=== PATIENT | female | born 1990 | race Caucasian/White ===

== ENCOUNTER 2020-02-26 10:08 | Observation (INO) ==
--- NOTE | 2020-02-26 10:38 | Emergency Department Note ---
History of Present Illness General Chief complaint: Facial Injury/Pain Stated complaint: FACIAL SWELLING Time Seen by Provider: 02/26/20 10:19 Source: patient Mode of arrival: ambulatory Limitations: no limitations History of Present Illness Provider complaint: Right facial pain Onset (ago): day(s) Location: face and right Radiation: non-radiation Severity: moderate Pain Consistency: + constant Maximum Pain Intensity: 6 Quality: + other (Pressure) Relieved By: + none Associated symptoms: + fever/chills (Temperature of 100.1 yesterday); no chest pain, no cough, no headaches, no nausea/vomiting and no shortness of breath This is a 29-year-old female who developed a sinus infection about a week ago on the right side. She was placed on Augmentin and a nasal steroid by her PCP 2 days ago. She developed right facial swelling at that time. She stated that it started around the maxillary area and is spreading to the upper portion of her head and inferiorly. She denies any dental pain or recent dental work. She has had no fevers but went to urgent care yesterday and they noted a temperature of 100.1. She was given Benadryl but this did not change her symptoms in any way. She has right facial pain which she describes as a pressure. No alleviating factors. She denies any headache, chest pain, shortness of breath, vomiting, abdominal pain, urinary symptoms or known exposure to COVID-19. She does go to work and has had temperature checks every day. She rates her pain a 6 out of 10 in severity. She denies any swelling to her tongue or throat. Home Medications Home Medications Medication Instructions Recorded Confirmed Type drospirenone 3 mg-ethinyl 1 tab PO DAILY #28 tab 12/11/19 02/26/20 Rx estradiol 0.03 mg tablet acetaminophen [Tylenol Extra 1,000 mg PO Q6H PRN 02/26/20 02/26/20 History Strength] Allergies Allergy/AdvReac Type Severity Reaction Status Date / Time No Known Allergies Allergy Verified 02/26/20 11:24 Past Med/Surg History Medical History Anemia Arthritis Migraine with aura Varicella Surgical History Encounter for ureteral catheter placement Family History Denies family history of Ovarian cancer Prostate cancer Breast cancer Colorectal cancer Social History Preferred Language: [place] Communication Ability: Effective Fish Butcher Required: No Beliefs That Will Affect Care: None Current Living Situation: Alone Other Information That Helps Us Care for You: No Feels Safe at Home: Yes Safety Concerns: Feels Safe At This Time Smoking Status: Never smoker Hx Alcohol Use: Yes Hx Substance Use: No Review of Systems See HPI for pertinent positives & negatives. and A total of 10 systems reviewed and were otherwise negative Physical Exam Vital Signs Vital Signs - 24 hr 02/26/20 10:16 02/26/20 11:50 02/26/20 14:00 Temperature 37.1 C 37.2 C Temperature Source Oral Oral Pulse Rate 129 H Pulse Rate [Left Finger] 106 H 118 H Pulse Rhythm Regular Pulse Strength Normal Respiratory Rate 20 22 20 Respiratory Effort / Characteristics Non-Labored Spontaneous Respiratory Depth Normal Respiratory Pattern Regular Blood Pressure 192/149 H Blood Pressure [Left Arm] 188/134 H 217/166 H Blood Pressure Mean 163 Blood Pressure Mean [Left Arm] 152 183 Blood Pressure Position Sitting Pulse Oximetry 97 98 98 Oxygen Delivery Method Room Air Sepsis Recent Fever Within 48 Hours No Sepsis Action Taken by Nursing No Action Required Constitutional: Vital signs reviewed. Eyes: Pupils are equal round reactive to light. Conjunctiva are noninjected. ENT: Pharynx is clear without erythema or exudate. Mucous membranes are moist. No swelling to the tongue or uvula. No elevation of the tongue. No submental firmness or swelling. She does have tenderness and swelling to the right side of her face. The tenderness is localized to the maxillary region. Neck supple without meningeal signs. Respiratory: Clear to auscultation bilaterally. Breath sounds are equal bilaterally. No stridor or wheezing. Cardiovascular: Tachycardic. Regular rhythm. GI: Soft, nondistended and nontender. Bowel sounds are present. Musculoskeletal: No peripheral edema. No lower extremity tenderness. Integumentary: No cyanosis. or jaundice. Neurological: The patient is awake and alert. No focal deficits. Psychiatric: Anxious. Course Administered Medications Acetaminophen (Tylenol) 650 mg PO Q4HWA NICHOLAS Stop: 03/27/20 15:59 Last Admin: 02/26/20 15:48 Dose: 650 mg Documented by: [id number] Ioversol (Optiray 320 100ml) 95 ml IV ONCE PRN PRN Reason: Interaction Checking Stop: 03/01/20 12:12 Last Admin: 02/26/20 12:13 Dose: 95 ml Documented by: [id number] Ketorolac Tromethamine (Toradol) 30 mg IV Q6H PRN PRN Reason: Pain Stop: 03/02/20 14:13 Last Admin: 02/26/20 14:28 Dose: 30 mg Documented by: [id number] Lorazepam (Ativan) 0.5 mg PO Q6H PRN PRN Reason: Anxiety Stop: 03/27/20 14:13 Last Admin: 02/26/20 14:28 Dose: 0.5 mg Documented by: [id number] Miscellaneous (Order Awaiting Action) 1 ea N/A QS [facility] Stop: 03/27/20 15:59 Last Admin: 02/26/20 15:39 Dose: Not Given Documented by: [id number] Discontinued Medications Ampicillin Sodium/Sulbactam Sodium 3,000 mg/ Sodium Chloride 108 mls @ 200 mls/hr IV NOW STA; Protocol Stop: 02/26/20 13:19 Last Infusion: 02/26/20 13:57 Dose: 0 mls/hr Documented by: [id number] Admin: 02/26/20 13:07 Dose: 200 mls/hr Documented by: [id number] Sodium Chloride (Nss 1000ml) 1,000 mls @ 999 mls/hr IV .Q1H1M NICHOLAS Stop: 02/26/20 15:01 Last Infusion: 02/26/20 15:21 Dose: 0 mls/hr Documented by: [id number] Admin: 02/26/20 14:05 Dose: 999 mls/hr Documented by: [id number] Morphine Sulfate (Morphine Sulfate) 4 mg IV NOW STA Stop: 02/26/20 13:07 Last Admin: 02/26/20 14:04 Dose: 4 mg Documented by: [id number] Ondansetron HCl (Zofran) 4 mg IV NOW STA Stop: 02/26/20 13:07 Last Admin: 02/26/20 14:04 Dose: 4 mg Documented by: [id number] Medical Decision Making Differential Diagnosis Facial abscess, facial cellulitis, sialoadenitis, outpatient treatment failure, sinusitis, MRSA Medical Records Attestation: I reviewed the patient's medical records. I did perform a limited focused review of portions of the patient's old chart on the electronic medical record. The patient has had no recent pertinent visits to this hospital. Home Medications Current Medication List: was personally reviewed by me Laboratory Data Attestation: I reviewed the patient's lab results. Result diagrams: 02/26/20 10:54 02/26/20 10:54 Lab Results 02/26/20 02/26/20 02/26/20 Range/Units 10:54 10:54 10:59 WBC 6.79 (4.8-10.8) K/uL RBC 4.80 (4.2-5.4) M/uL Hgb 13.8 (12.0-16.0) g/dL Hct 40.2 (37-47) % MCV 83.8 (80-100) fL MCH 28.8 (25-34) pg MCHC 34.3 (32-36) g/dL RDW Std Deviation 39.3 (36.4-46.3) fL RDW Coeff of Evelyn 13.0 (11.5-14.5) % Plt Count 283 (130-400) K/uL MPV 10.0 (7.4-10.4) fL Immature Gran % (Auto) 0.1 % Neut % (Auto) 69.8 % Lymph % (Auto) 15.5 % [place] % (Auto) 13.3 % Eos % (Auto) 1.2 % Baso % (Auto) 0.1 % Immature Gran # (Auto) 0.01 (0.00-0.02) K/uL Neut # (Auto) 4.74 (1.4-6.5) K/uL Lymph # (Auto) 1.05 L (1.2-3.4) K/uL [place] # (Auto) 0.90 H (0.11-0.59) K/uL Eos # (Auto) 0.08 (0-0.5) K/uL Baso # (Auto) 0.01 (0-0.2) K/uL Sodium 137 (136-145) mmol/L Potassium 3.6 (3.5-5.1) mmol/L Chloride 106 (98-107) mmol/L Carbon Dioxide 23 (21-32) mmol/L Anion Gap 8.0 (3-11) BUN 9 (7-18) mg/dl Creatinine 0.74 (0.6-1.2) mg/dl Est Cr Clr Drug Dosing 140.7 ml/min Est GFR ( Amer) 127.8 Est GFR (Non-Af Amer) 110.3 BUN/Creatinine Ratio 11.7 (10-20) Glucose 114 H (70-99) mg/dl Calcium 9.3 (8.5-10.1) mg/dl Nasal Screen MRSA (PCR) Negative (Negative) Imaging Data Radiologist's Impression: CT OF THE NECK WITH IV CONTRAST CLINICAL HISTORY: Facial swelling. Evaluate for abscess. COMPARISON STUDY: No previous studies for comparison. TECHNIQUE: Following IV administration of 95 mL of Optiray-320, helical axial images of the neck were obtained. Sagittal and coronal reconstructions were viewed. Automated exposure control was utilized for the study. A dose lowering technique was utilized adhering to the principles of ALARA. CT DOSE: 549.54 mGy.cm FINDINGS: Visualized portion of the intracranial contents are unremarkable. Orbits are unremarkable. Mastoid air cells are clear. Right maxillary sinus is nearly completely opacified. The left maxillary sinus is clear. There is mild right ethmoid sinus mucosal thickening. Lung apices are clear. The parotid and submandibular glands are normal. Note is made of a large periapical lucency associated with the right second maxillary bicuspid and the right first maxillary molar. This measures 1.5 cm. Small amount of radiodense material along the super aspect of this lucency may reflect surgical material. There is mild inflammation anterior to the right maxilla with a possible tiny 4 mm abscess. No additional abscesses are present. IMPRESSION: Large periapical lucency associated with the right first maxillary molar and adjacent second maxillary bicuspid, extending into the right maxillary sinus. This may reflect a periapical abscess or odontogenic cyst. Radiodense material along the superior aspect of this lucency may reflect surgical material. Associated near complete opacification of the right maxillary sinus and mild associated cellulitis with a probable tiny 4 mm adjacent abscess. ACT 112: Negative or not required by law. Electronically signed by: Stanley Troy M.D. 02/26/2020 12:34 PM Blood Pressure Blood Pressure Findings: Elevated blood pressure Blood Pressure Disposition: Referred to patients primary care provider SHANNON Narrative I did evaluate the patient as noted above. She declined any pain medication at this time as she drove herself here. IV access was established. I did order an MRSA swab. This was negative. I did order blood cultures. I did order and review the patient's blood work as noted in the electronic medical record. Her white blood cell count is not elevated. Electrolytes are unremarkable. I did order a CT of the soft tissue neck. I did review the images myself as well as the radiology report as described above. She apparently has a abscess in the periapical space as well as a small one in the right maxillary sinus which is completely opacified. She also has facial cellulitis. I did discuss the case with Dr. Foley of oral surgery. He recommended hospitalization for IV antibiotics and he will consult on the patient for operative repair. I did treat the patient with Unasyn IV. I did also treat the patient with IV morphine and Zofran since she would be hospitalized. I did discuss the test results with her and she was agreeable with the plan. Impression & Plan Cellulitis and abscess of face, Acute maxillary sinusitis, Failure of outpatient treatment Discharge Plan Visit Data Chief Complaint: Facial Injury/Pain Stated Complaint: FACIAL SWELLING ED Provider: Anuj Bowens Discharge Problem: Cellulitis and abscess of face, Acute maxillary sinusitis, Failure of outpatient treatment Patient Disposition: Being Evaluated by Hospitalist Discharge Instructions Interventions: ED Discharge Assessment Last Done: 02/26/20 15:10
[2020-02-26 11:16] LABS: Basophils # (auto) 0.01 K/uL (0-0.2); Basophils % (auto) 0.1 %; Eosinophils # (auto) 0.08 K/uL (0-0.5); Eosinophils % (auto) 1.2 %; Hematocrit (blood only) 40.2 % (37-47); Hemoglobin 13.8 g/dL (12.0-16.0); Immature Granulocytes # (auto) 0.01 K/uL (0.00-0.02); Immature Granulocytes % (auto) 0.1 %; Lymphocytes # (auto) 1.05 K/uL (1.2-3.4); Lymphocytes % (auto) 15.5 %; Mean Corpuscular Hemoglobin 28.8 pg (25-34); Mean Corpuscular Hgb Conc 34.3 g/dL (32-36); Mean Corpuscular Volume 83.8 fL (80-100); Monocytes % (auto) 13.3 %; Neutrophils # (auto) 4.74 K/uL (1.4-6.5); Neutrophils % (auto) 69.8 %; Platelet Count 283 K/uL (130-400); RDW Standard Deviation 39.3 fL (36.4-46.3); White Blood Count 6.79 K/uL (4.8-10.8)
[2020-02-26 11:32] LABS: BUN Creatinine Ratio 11.7 (10-20); Calcium 9.3 mg/dl (8.5-10.1); Creatinine Clr Calc Pharmacy 140.7 ml/min; Est GFR (African American) 127.8; Est GFR (Non-African American) 110.3; Potassium 3.6 mmol/L (3.5-5.1)
[2020-02-26] MEDS ORDERED: IOVERSOL 100ml IV PRN (12:13)
--- NOTE | 2020-02-26 12:36 | CT Scan Report ---
CT OF THE NECK WITH IV CONTRAST CLINICAL HISTORY: Facial swelling. Evaluate for abscess. COMPARISON STUDY: No previous studies for comparison. TECHNIQUE: Following IV administration of 95 mL of Optiray-320, helical axial images of the neck wer e obtained. Sagittal and coronal reconstructions were viewed. Automated exposure control was utiliz ed for the study. A dose lowering technique was utilized adhering to the principles of ALARA. CT DOSE: 549.54 mGy.cm FINDINGS: Visualized portion of the intracranial contents are unremarkable. Orbits are unremarkable. Mastoid air cells are clear. Right maxillary sinus is nearly completely opacified. The left maxillar y sinus is clear. There is mild right ethmoid sinus mucosal thickening. Lung apices are clear. The pa rotid and submandibular glands are normal. Note is made of a large periapical lucency associated with the right second maxillary bicuspid and the right first maxillary molar. This measures 1.5 cm. Small amount of radiodense material along the super aspect of this lucency may reflect surgical material. There is mild inflammation anterior to the right maxilla with a possible tiny 4 mm abscess. No additi onal abscesses are present. IMPRESSION: Large periapical lucency associated with the right first maxillary molar and adjacent sec ond maxillary bicuspid, extending into the right maxillary sinus. This may reflect a periapical absce ss or odontogenic cyst. Radiodense material along the superior aspect of this lucency may reflect matt gical material. Associated near complete opacification of the right maxillary sinus and mild associat ed cellulitis with a probable tiny 4 mm adjacent abscess. ACT 112: Negative or not required by law. Electronically signed by: Stanley Troy M.D. 02/26/2020 12:34 PM
[2020-02-26] MEDS ORDERED: AMPICILLIN/SULBACTAM SOD 3,000 MG in 0.9 % SODIUM CHLORIDE 100 ML IV STA (12:47)
[2020-02-26] MEDS ORDERED: ONDANSETRON INJ 2 MG/ML 2 ML VIAL IV STA (13:06)
[2020-02-26] MEDS ORDERED: MoRPHine SULFATE 4 MG/ML 1 ML CARP\\VIAL IV STA (13:06)
--- NOTE | 2020-02-26 13:59 | History & Physical Report ---
Date of Service February 26, 2020 Assessment & Plan (1) Periapical abscess: IV Unasyn 3g Q6H Minced and moist diet NSS 1L bolus due to tachycardia in ER Pain control with NICHOLAS acetaminophen, Toradol PRN and oxycodone PRN Consult oral maxillofacial surgery (Dr Foley) (2) Cellulitis and abscess of face: Sinusitis/cellulitis as above (3) Anxiety: Lorazepam PRN only while admitted (4) Elevated blood pressure, situational: Unclear if underlying essential hypertension. Clearly anxious on admission and will treat with PRN lorazepam. Admission and Anticipated Discharge Date Admission Date: 02/26/2020 History of Present Illness Chief Complaint: Facial pain, erythema Primary Care Provider: Bobby Louis Jr, Janet Flores is a 29 year old female who presents to the ER due to fever, chills with worsening right sided facial pain. She first developed a sinus infection approximately 1 week previously and was started on Augmentin and nasal steroid for the last 2 days. Pain currently 6/10. She went to urgent care yesterday and noted fever of 100.1 and was prescribed Benadryl but with no change in her symptoms. Due to worsening pain and ongoing fever she came to the ER today. CT in the ER was concerning for a periapical abscess with the right first maxillary molar therefore ER discussed with Dr Foley (oral maxillofacial surgery and advised for admission with IV antibiotics and possible need for operative drainage. She patient reports pain mainly over maxillary sinus on right side with increased sensitivity of her teeth. Allergies Allergy/AdvReac Type Severity Reaction Status Date / Time No Known Allergies Allergy Verified 02/26/20 11:24 Home Medications Home Medications Medication Instructions Recorded Confirmed Type drospirenone 3 mg-ethinyl 1 tab PO DAILY #28 tab 12/11/19 02/26/20 Rx estradiol 0.03 mg tablet acetaminophen [Tylenol Extra 1,000 mg PO Q6H PRN 02/26/20 02/26/20 History Strength] amoxicillin-pot clavulanate 1 tab PO BID #25 tab 02/27/20 Rx [Augmentin] hydrocodone-acetaminophen 1 tab PO Q4H PRN #14 tab 02/27/20 Rx Past Med/Surg History Medical History Anemia Arthritis Migraine with aura Varicella Surgical History Encounter for ureteral catheter placement Family History Denies family history of Ovarian cancer Prostate cancer Breast cancer Colorectal cancer Social History Preferred Language: Amharic Communication Ability: Effective Criminal Investigative Agent Required: No Beliefs That Will Affect Care: None Current Living Situation: Alone Feels Safe at Home: Yes Smoking Status: Never smoker Hx Alcohol Use: Yes Hx Substance Use: No Review of Systems Review of Systems: All systems reviewed & are unremarkable except as noted in HPI & below Physical Exam Constitutional: well developed, well nourished and + obese; no acute distress Eyes: + anicteric sclerae; normal pupil size ENMT: Oropharyngeal exam not performed to limit oral secretion exposure in light of current COVID-19 epidemic. She will be examined by Dr Foley and given concern for periapical abscess on CT my examination would not change her management. Neck: normal visual inspection and trachea midline Respiratory: normal respiratory effort, lungs clear to auscultation Cardiovascular: Rate/Rhythm: regular rhythm and + tachycardic Heart Sounds: no murmur Extremities: normal capillary refill Musculoskeletal: no cyanosis or clubbing, extremities motor strength 5/5 Skin: Right facial cellulitis with erythema, warmth and swelling over right maxilla. Pain on light palpation. Neurologic: moves all extremities and awake; not confused Psychiatric: Orientation: alert and oriented x 3 Affect: + anxious affect Mood: + anxious mood Lymphatic: no cervical or axillary lymphadenopathy Results & Data Results & Data ([facility]) Vital Signs (Past 12 Hours) Vital Signs Temp Pulse Pulse Resp BP BP Pulse Ox 02/26/20 11:50 106 H 22 188/134 H 98 02/26/20 10:16 37.1 C 129 H 20 192/[address] OF THE NECK WITH IV CONTRAST IMPRESSION: Large periapical lucency associated with the right first maxillary molar and adjacent second maxillary bicuspid, extending into the right maxillary sinus. This may reflect a periapical abscess or odontogenic cyst. Radiodense material along the superior aspect of this lucency may reflect surgical material. Associated near complete opacification of the right maxillary sinus and mild associated cellulitis with a probable tiny 4 mm adjacent abscess. Code Status & VTE Plan Code Status Full VTE Prophylaxis Plan VTE Prophylaxis will be ordered: No PG Care Time/CCT Total # of Minutes Spent Total Time Spent with Patient: Total time spent is greater than 50% in coordination of care (as documented) at patient's floor/unit and/or counseling patient: Coding Level of Care Code 92375 OBS Care - Level 2 Diagnoses Periapical abscess K04.7 Cellulitis and abscess of face L03.211; L02.01 Anxiety F41.9 Elevated blood pressure, situational R03.0
[2020-02-26] MEDS ORDERED: SODIUM CHLORIDE 0.9% 1000ML 1,000 ML IV SCH (14:01)
[2020-02-26] MEDS ORDERED: LORazepam 0.5 MG TAB PO PRN (14:14)
[2020-02-26] MEDS ORDERED: KETOROLAC 30 MG/ML VIAL IV PRN (14:14)
[2020-02-26] MEDS ORDERED: OXYCODONE HCL IR 5 MG TAB (IMMEDIATE RELEASE) PO PRN (15:27)
[2020-02-26] MEDS ORDERED: ONDANSETRON INJ 2 MG/ML 2 ML VIAL IV PRN (15:27)
[2020-02-26] MEDS ORDERED: POLYETHYLENE (MIRALAX) 17 GM PACK PO PRN (15:27)
[2020-02-26] MEDS ORDERED: ALUMINUM/MAGNESIUM SUSP 30 ML UDC PO PRN (15:27)
[2020-02-26] MEDS ORDERED: MAGNESIUM HYDROXIDE SUSP 30 ML UDC PO PRN (15:27)
[2020-02-26] MEDS: ACETAMINOPHEN 325 MG TAB PO SCH ×2 (15:48→21:19)
[2020-02-26] MEDS: AMPICILLIN/SULBACTAM SOD 3,000 MG in 0.9 % SODIUM CHLORIDE 100 ML IV SCH (17:05)
--- NOTE | 2020-02-26 19:54 | Surgery Consultation ---
Date of Consultation February 26, 2020 History of Present Illness Reason for Consultation: Oral Maxillofacial Surgery Exam right sinus infection and right facial swelling x 2 days Present Complaint: I have pain/swelling/drainage from my right sinus and upper face. Symptoms have been ongoing for a while they would come and go. This is the second "sinus" swelling over last few months. No dental issues=no pain, sensitivity, H/O root canal # 3 tooth in past, swelling mucobuccal fold upper right side. A detailed oral exam was completed. Finding-swelling , tender gingival tissue,Teeth are in ideal normal position No clinical indications for removal. CT scan reviewed-complete opacity w/in right sinus with a cyst like element w/in the sinis possible related to the past root canal Soft tissue of the floor of the mouth, tongue, hard/soft palate, posterior pharyngeal area all with in normal limits, no pathology or abnormal findings noted. Cancer exam--No lesions noted that require follow up or Bx. Oral Care---Overall oral care is good Occlusion---Class I TMJ exam: No pop, clicking, pain, good ROM, No history of TMJ injury or dysfunction Periodontal exam---excellent Neck is supple, FROM, Able to extend and flex neck w/o difficulty, no masses, no abnormalities, no airway issues, no evidence of sleep apnea. Most of the swelling over the right side of the face, infraorbital, naso-labial area No drainable pus-very edematous in nature Plan: I will need to order a maxillofacial CT with out contrast to get better picture of the teeth and cyst like mass w/in the sinus. Once I review the CT w/o contrast I will develop a Treatment plan. Head and Neck Physical exam completed Attending Physician: Stevie Barker MD Allergies Allergy/AdvReac Type Severity Reaction Status Date / Time No Known Allergies Allergy Verified 02/26/20 11:24 Home Medications Home Medications Medication Instructions Recorded Confirmed Type drospirenone 3 mg-ethinyl 1 tab PO DAILY #28 tab 12/11/19 02/26/20 Rx estradiol 0.03 mg tablet acetaminophen [Tylenol Extra 1,000 mg PO Q6H PRN 02/26/20 02/26/20 History Strength] Patient History Medical History Anemia Arthritis Migraine with aura Varicella Surgical History Encounter for ureteral catheter placement Family History Denies family history of Ovarian cancer Prostate cancer Breast cancer Colorectal cancer Social History Preferred Language: [place]de[place] Communication Ability: Effective Instrument/Control Technician Required: No Beliefs That Will Affect Care: None Current Living Situation: Alone Other Information That Helps Us Care for You: No Feels Safe at Home: Yes Safety Concerns: Feels Safe At This Time Smoking Status: Never smoker Hx Alcohol Use: Yes Hx Substance Use: No Results & Data Vital Signs (Past 12 Hours) Vital Signs Temp Pulse Pulse Resp BP BP Pulse Ox 02/26/20 19:13 150/99 H 02/26/20 17:48 148/100 H 02/26/20 17:02 152/105 H 02/26/20 15:27 37.5 C 106 H 16 169/116 H 97 02/26/20 15:10 99 H 20 182/137 H 100 02/26/20 14:00 37.2 C 118 H 20 217/166 H 98 02/26/20 11:50 106 H 22 188/134 H 98 02/26/20 10:16 37.1 C 129 H 20 192/149 H 97 PG Care Time/CCT Total # of Minutes Spent Total Time Spent with Patient: Total time spent is greater than 50% in coordination of care (as documented) at patient's floor/unit and/or counseling patient: Coding Level of Care Code 12625 Office/OBS Consult Lvl 4
--- NOTE | 2020-02-26 21:27 | CT Scan Report ---
CT facial bones wo con CLINICAL HISTORY: 29 years-old Female presenting with need noncontrastant CT for teeth/sinus. Acute f acial pain with large periapical lucency described involving the right first maxillary molar and chaz cent second maxillary bicuspid. COMPARISON STUDY: CT soft tissue neck of same day TECHNIQUE: High-resolution CT scan of the facial bones is performed. Images are reviewed in the axia l, sagittal, and coronal planes. IV contrast was not administered for this examination. A dose lower ing technique was utilized adhering to the principles of ALARA. CT DOSE: 561.29 mGycm FINDINGS: Unremarkable appearance of the orbits. Imaged airway appears patent. Streak artifact from dental amal tien hardware. Mild premaxillary soft tissue swelling most pronounced on the right is redemonstrated. The previously questioned 4 mm abscess adjacent to the anterior wall right maxillary sinus is better seen on comparison contrast-enhanced exam. No drainable fluid collection identified on today's study. No acute processes of the imaged intracranial structures. The imaged cervical spine appears intact. Mastoid air cells and middle ear cavities are clear. Modera te mucosal thickening of the anterior right ethmoid air cells. There is complete opacification of the right maxillary sinus. Hypoplastic right frontal sinus. Large periapical cyst is redemonstrated invo lving the right maxillary second bicuspid and first maxillary molar with findings suggestive of prior root canals within these distributions. The cyst overall measures approximately 1.9 cm in greatest d imension and extends into the floor of the maxillary sinus. Radiodense material along superior margin is likely on a postsurgical basis. No anterior cortical dehiscence. The remainder of the teeth appea r intact and unremarkable. IMPRESSION: 1. No acute facial bone fracture. 2. Large periapical lucency is redemonstrated involving the right second maxillary bicuspid and adjac ent first maxillary molar where there is evidence of prior root canals. This should be correlated wit h dental examination findings to exclude a periapical abscess. 3. Complete opacification of the right maxillary sinus with moderate mucosal thickening of the right ethmoid air cells. 4. Previously questioned tiny abscess of the premaxillary tissues is better evaluated on comparison c ontrast-enhanced exam. There is no drainable fluid collection. ACT 112: Negative or not required by law. The above report was generated using voice recognition software. It may contain grammatical, syntax o r spelling errors. Electronically signed by: Wil Lujan M.D. 02/26/2020 9:26 PM
[2020-02-26] MEDS ORDERED: SODIUM CHLORIDE 0.9% 1000ML 1,000 ML IV ONE (21:39)
[2020-02-26] MEDS: NSS + 20MEQ KCL 20 MEQ/1,000 ML BAG IV SCH (22:51)
[2020-02-27] MEDS: AMPICILLIN/SULBACTAM SOD 3,000 MG in 0.9 % SODIUM CHLORIDE 100 ML IV SCH ×3 (00:07→11:34)
[2020-02-27 05:20] LABS: Basophils # (auto) 0.01 K/uL (0-0.2); Basophils % (auto) 0.2 %; Eosinophils # (auto) 0.19 K/uL (0-0.5); Eosinophils % (auto) 3.4 %; Hematocrit (blood only) 35.6 % (37-47); Hemoglobin 12.1 g/dL (12.0-16.0); Immature Granulocytes # (auto) 0.01 K/uL (0.00-0.02); Immature Granulocytes % (auto) 0.2 %; Lymphocytes # (auto) 1.49 K/uL (1.2-3.4); Lymphocytes % (auto) 26.8 %; Mean Corpuscular Hemoglobin 28.7 pg (25-34); Mean Corpuscular Volume 84.6 fL (80-100); Mean Platelet Volume 9.6 fL (7.4-10.4); Monocytes % (auto) 14.4 %; Neutrophils # (auto) 3.05 K/uL (1.4-6.5); Platelet Count 243 K/uL (130-400); RDW Coefficient of Variation 13.1 % (11.5-14.5); RDW Standard Deviation 40.2 fL (36.4-46.3); Red Blood Count 4.21 M/uL (4.2-5.4); White Blood Count 5.55 K/uL (4.8-10.8)
[2020-02-27 05:47] LABS: BUN Creatinine Ratio 10.6 (10-20); Calcium 8.3 mg/dl (8.5-10.1); Creatinine Clr Calc Pharmacy 167.9 ml/min; Est GFR (African American) 142.2; Est GFR (Non-African American) 122.7; Potassium 3.6 mmol/L (3.5-5.1)
[2020-02-27] MEDS: ACETAMINOPHEN 325 MG TAB PO SCH (07:33)
[2020-02-27] MEDS: NSS + 20MEQ KCL 20 MEQ/1,000 ML BAG IV SCH (09:03)
--- NOTE | 2020-02-27 10:18 | Progress Note ---
Date of Service Janet is responding to the IV antibiotics very well. She feels much better and the swelling is resolving. The non contrast CT shows an almost 2 cm cyst within the right maxillary sinus walled of from the sinus by a thin bony wall. This is most likely caused from an infected root canal tooth # 3. My plan--Is to determine if the root canal seal is the cause of this infection and cyst development, and also to determine if the tooth is periodontal stable. To do that I will have her see her dentist for dental X Rays then I will coordinate with him and finalize a treatment plan for either cyst removal and keeping the tooth or extraction and cyst removal once the acute phase has resolved. Janet will continue on the Augmentin and I will Rx Vicodin as needed. She has my contact information and I will follow up and plan the next phase of her treatment and set up the procedure as an out patient . OK for Discharge today with early Follow up with her dentist. February 27, 2020 Assessment & Plan Admission and Anticipated Discharge Date Admission Date: February 26, 2020 Results & Data ([facility]) Vital Signs (Past 12 Hours) Vital Signs Temp Pulse Resp BP BP Pulse Ox 02/27/20 07:52 37 C 96 H 16 165/123 H 97 02/27/20 03:40 80 157/98 H 02/26/20 22:58 36.8 C 84 15 160/97 H 159/103 H 99 PG Care Time/CCT Total # of Minutes Spent Total Time Spent with Patient: Total time spent is greater than 50% in coordination of care (as documented) at patient's floor/unit and/or counseling patient: Coding Level of Care Code 53914 Subseq Hosp Care Lvl 1
--- NOTE | 2020-02-27 10:54 | Discharge Summary ---
Date of Service February 27, 2020 Admission HPI Per Admitting Provider Augmentin since Saturday not improving. Works for [employer] Principal Diagnosis Infected root canal, abscess Discharge Exam Constitutional WD/WN, vitals as above Respiratory normal respiratory effort, lungs clear to auscultation Cardiovascular RRR, no murmur, no edema Gastrointestinal (Abdomen) normal bowel sounds, soft, nontender, no hepatosplenomegaly Musculoskeletal no cyanosis or clubbing, extremities motor strength 5/5 Skin no rashes, warm and dry Neurologic moves all extremities and awake Psychiatric A+Ox3, euthymic affect Discharge Data Allergies Allergy/AdvReac Type Severity Reaction Status Date / Time No Known Allergies Allergy Verified 02/26/20 11:24 Consultations 02/26/20 13:01 ED Decision to Admit Stat 02/26/20 15:27 Consult Oromaxillofacial Surgery Routine Ordered Studies 02/26/20 10:32 CT soft tissue neck w con Stat 02/26/20 19:59 CT facial bones wo con Urgent Hospital Course (1) Periapical abscess: IV Unasyn 3g Q6H while inpatient - has existing prescription for Augmentin - per surgery she will continue this regimen. Dr. Foley will coordinate with patient's dentist to finalize her treatment Given NSS 1L bolus due to tachycardia in ER Consult oral maxillofacial surgery (Dr Foley) - continue existing script for Au gmentin and can discharge with close follow up with her dentist (2) Cellulitis and abscess of face: Sinusitis/cellulitis as above As above (3) Hypertension: (4) Elevated blood pressure, situational: Unclear if underlying essential hypertension. Asymptomatic. Patient has access to bp cuff at work, will check her bp periodically and keep a log to take to her pcp Total Time Total Time Spent Total Time Spent (In Minutes): greater than 30 minutes Discharge Plan Discharge Items Patient Disposition: Home - Self-Care Reason For Visit: PERIAPICAL ABSCESS Discharge Diagnosis: cyst with in th eright sinus Condition on Discharge: Good Activity: Resume your previous activity Bathing: No limitations Driving/Machine Use: No limitations Non-emergency contact: Surgeon Call non-emergency contact if: your symptoms worsen, your pain is not controlled, your pain is worsening and your wound has increased drainage Follow-up/Referrals: Bobby Louis Jr, DO [Primary Care Provider] - Gumaro Foley, JACINTO [Physician] - Diet: Regular Addtl Attending Provider Instructions: Pain: * Is best controlled by the medications recommended. They are most effective when taken before the local anesthesia diminishes and normal sensation returns to the area. * Do not take pain pills on an empty stomach. Narcotic pain medication such as Vicodin or Percocet may cause nausea, vomiting, drowsiness, dizziness, itching or constipation. If any of these side effects occur, discontinue the medication. * You may take an alternative over the counter pain medication (Tylenol or Motrin) as necessary or call our office for assistance. Swelling: * You may have swelling immediately occur and increase gradually over 24-48 hours. Oral Hygiene: * Oral Hygiene should not be neglected. * Castine your teeth as usual and rinse with warm salt water after each meal beginning gently the night of surgery. Call your doctor at [phone] Dr. Foley in case of profuse bleeding, uncontrolled pain, persistent nausea or abnormal elevation of temperature. Hypertension: Your blood pressure was running high while you were in the hospital. As we discussed, you should check your blood pressure at home after sitting quietly for five minutes while sitting with legs uncrossed. Keep a log of your blood pressures and follow up with your primary care provider in 1-2 weeks. You should call your doctor if you are over 180 for the top number (systolic) or over 95 for the bottom number (diastolic). You should come to the emergency department if you are having shortness of breath, chest pain or palpitations. If you develop a nose bleed and or headaches with high blood pressure you should report to the emergency department. Pending Studies at Discharge: No Stand-Alone Forms: My [facility], Opioid Pain Management, Smoking Cessation Medications and DC Order Prescriptions: New amoxicillin-pot clavulanate [Augmentin] 875-125 mg tablet 1 tab PO BID Qty: 25 RF: 0 Continued drospirenone-ethinyl estradiol [Ocella] 3-0.03 mg tablet 1 tab PO DAILY Qty: 28 RF: 3 acetaminophen [Tylenol Extra Strength] 500 mg Tablet 1,000 mg PO Q6H PRN (Reason: Pain) RF: 0 hydrocodone-acetaminophen 5-325 mg tablet 1 tab PO Q4H PRN (Reason: pain) Qty: 14 RF: 0 Discharge Orders: Discharge Order (Routine); Ordered 02/27/20 Ordered By: Gumaro Clifford/Other Patient Handouts: Dental Abscess Admission Data Admit Date/Time: 02/26/20 14:23 Attending Provider: Reginald Romero Admit Provider: Stevie Barker Primary Care Provider: Bobby Louis Jr Other Providers: Gumaro Foley ; Reginald Romero Other Interventions: Discharge Summary Assessment (RN) Last Done: 02/27/20 10:39 DC Date/Time DO NOT enter until pt leaves facility: 02/27/20 12:10 Coding Level of Care Code D/C Day Management >30 mins Diagnoses Periapical abscess K04.7 Cellulitis and abscess of face L03.211; L02.01 Hypertension I10 Elevated blood pressure, situational R03.0
== END 2020-02-27 12:10 | disposition home or self-care (01) ==
LOC: ED 10:08 → 3N 10:08 → SUATTDRO 14:23 → 3N 15:10